=== PATIENT | female | born 1950 | race Hispanic/Latino ===

== ENCOUNTER 2017-07-07 16:27 | Emergency (ER) | payer OTHER ==
[2017-07-07 17:04] LABS: BASOPHILS % (AUTO) 0.6 % (0.0-5.0); EOSINOPHILS % (AUTO) 2.4 % (0.0-8.0); HEMATOCRIT 35.4 % (36-48); LYMPHOCYTES % (AUTO) 24.2 % (21.0-51.0); MEAN CORPUSCULAR HEMOGLOBIN 23.7 pg (27.0-33.0); MEAN CORPUSCULAR HGB CONC 31.8 g/dL (32.0-36.0); MEAN CORPUSCULAR VOLUME 74.5 fL (79-99); MONOCYTES % (AUTO) 8.2 % (3.0-13.0); NEUTROPHILS % (AUTO) 64.6 % (40.0-77.0); PLATELET COUNT (AUTO) 291 K/uL (130-400); RED BLOOD CELL COUNT(AUTO) 4.75 MIL/uL (4.00-5.50); WHITE BLOOD COUNT (AUTO) 8.6 K/uL (4.8-10.8)
[2017-07-07 17:19] LABS: CREATININE 0.8 mg/dL (0.5-1.5); POTASSIUM 3.2 mmol/L (3.5-5.1)
[2017-07-07 17:21] LABS: INR 0.97 (0.85-1.15); PARTIAL THROMBOPLASTIN TIME 26.2 SEC (26.3-35.5); PROTHROMBIN TIME 10.2 SEC (9.6-11.6)
[2017-07-07 17:23] LABS: ALBUMIN 3.3 g/dL (3.5-5.0); BILIRUBIN,TOTAL 0.3 mg/dL (0.2-1.0); TOTAL PROTEIN, SERUM 7.7 g/dL (6.0-8.3)
[2017-07-07] MEDS ORDERED: POTASSIUM BICARB/CIT AC 25 MEQ TABLET.EFF ONE (18:01)
[2017-07-07] MEDS ORDERED: ACETAMINOPHEN-CODEINE 300/30MG TAB ONE (18:02)
[2017-07-07] MEDS ORDERED: SODIUM CHLORIDE 0.9% 500ML 500 ML IV ONE (18:02)
[2017-07-20] MEDS ORDERED: TIOT4MIS3 IH (13:53)
[2017-07-20] MEDS ORDERED: BRIM5DRO4 OU (13:53)
[2017-07-20] MEDS ORDERED: SIMV40TA5 PO (13:53)
[2017-07-20] MEDS ORDERED: LOSA1TAB37 PO (13:53)
[2017-07-20] MEDS ORDERED: AEC81 PO (13:53)
[2017-07-20] MEDS ORDERED: METF10004 PO (13:53)
[2017-07-20] MEDS ORDERED: LATA2.5D2 OU (13:53)
[2017-07-20] MEDS ORDERED: TYL3 PO (13:53)
[2017-07-20] MEDS ORDERED: FERR325T22 PO (13:53)
== END 2017-07-07 22:46 | disposition home or self-care (01) ==
LOC: EDH 16:27
DX: R91.1 Solitary pulmonary nodule (principal); E87.6 Hypokalemia; R07.89 Other chest pain; E78.5 Hyperlipidemia, unspecified; I10 Essential (primary) hypertension; Z86.73 Personal history of transient ischemic attack (TIA), and cerebral infarction without residual deficits
CPT/HCPCS: 36415; 71045; 71275; 80053; 84484 ×2; 85025; 85378; 85610; 85730; 87804 ×2; 93005 ×2; 96360; 99285; J7040

== ENCOUNTER 2017-07-21 07:24 | Day surgery (SDC) | payer OTHER ==
[~2017-07-21] VITALS: Ht 152.4 cm; Wt 59.5 kg
[~2017-07-21 07:24] MED LIST: AEC81 PO; BRIM5DRO4 OU; FERR325T22 PO; LATA2.5D2 OU; LOSA1TAB37 PO; METF10004 PO; SIMV40TA5 PO; SODIUM CHLORIDE 0.9% 1000ML 1,000 ML IV ONE; TIOT4MIS3 IH; TYL3 PO
[2017-07-21 07:41] VITALS: BP 155/82
[2017-07-21] MEDS ORDERED: PROPOFOL 10 MG/ML 20ML VIAL IV ONE ×3 (09:41→10:08)
[2017-07-21] MEDS ORDERED: ESMOLOL HCL 10 MG/ML 10 ML VIAL ONE (09:42)
[2017-07-21] MEDS ORDERED: FENTANYL CITRATE PF 50 MCG/1 ML 2ML VIAL ONE (10:01)
[2017-07-21 10:18] VITALS: BP 101/51
== END 2017-07-21 11:00 ==
LOC: DAH 07:24
PROVIDERS: ATTEND Internal Medicine Gastroenterology
DX: K52.89 Other specified noninfective gastroenteritis and colitis (principal); D50.0 Iron deficiency anemia secondary to blood loss (chronic); K29.50 Unspecified chronic gastritis without bleeding; K57.30 Diverticulosis of large intestine without perforation or abscess without bleeding; K21.9 Gastro-esophageal reflux disease without esophagitis; I10 Essential (primary) hypertension; J44.9 Chronic obstructive pulmonary disease, unspecified; E11.9 Type 2 diabetes mellitus without complications; Z86.73 Personal history of transient ischemic attack (TIA), and cerebral infarction without residual deficits; G43.909 Migraine, unspecified, not intractable, without status migrainosus; F32.89 Other specified depressive episodes; H40.89 Other specified glaucoma; E78.4 Other hyperlipidemia; Z79.82 Long term (current) use of aspirin; Z79.84 Long term (current) use of oral hypoglycemic drugs; Z79.899 Other long term (current) drug therapy
CPT/HCPCS: 43239; 45380; 82948 ×2; 88305; 88312; 88313; 93005; A4606; J2704 ×3; J3010; J3490; J7030

== ENCOUNTER → 2017-08-10 | Outpatient (CLI) | payer OTHER ==
[~2017-08-10] MED LIST changes: -SODIUM CHLORIDE 0.9% 1000ML 1,000 ML IV ONE
== END | disposition home or self-care (01) ==
LOC: RAH 11:17
PROVIDERS: ATTEND Internal Medicine Gastroenterology
DX: R10.9 Unspecified abdominal pain (principal); R11.2 Nausea with vomiting, unspecified; R14.0 Abdominal distension (gaseous)
CPT/HCPCS: 78264; A9541

== ENCOUNTER → 2018-07-11 | Outpatient (CLI) | payer OTHER ==
[~2018-07-11] MED LIST changes: +IOHEXOL-350 50ML VIAL IV ONE; +METF-446 PO; -METF10004 PO
== END | disposition home or self-care (01) ==
LOC: RAH 08:37
PROVIDERS: ATTEND Family Medicine
DX: J44.9 Chronic obstructive pulmonary disease, unspecified (principal); K76.0 Fatty (change of) liver, not elsewhere classified; M47.815 Spondylosis without myelopathy or radiculopathy, thoracolumbar region; Z90.49 Acquired absence of other specified parts of digestive tract
CPT/HCPCS: 71270; Q9967

== ENCOUNTER → 2018-11-22 | Outpatient (CLI) | payer OTHER ==
[~2018-11-22] MED LIST changes: +GADODIAMIDE 10 MMOL/20 ML VIAL IV ONE; -IOHEXOL-350 50ML VIAL IV ONE
== END | disposition home or self-care (01) ==
LOC: RAH 07:57
PROVIDERS: ATTEND Family Medicine
DX: I65.21 Occlusion and stenosis of right carotid artery (principal); I70.0 Atherosclerosis of aorta; Z86.73 Personal history of transient ischemic attack (TIA), and cerebral infarction without residual deficits
CPT/HCPCS: 70549; A9579

== ENCOUNTER 2018-12-25 19:22 | Emergency (ER) | payer OTHER ==
[~2018-12-25 19:22] MED LIST changes: -GADODIAMIDE 10 MMOL/20 ML VIAL IV ONE
[2018-12-25] MEDS ORDERED: ACETAMINOPHEN EXTRA STRENGTH 500 MG TABLET ONE (19:40)
== END 2018-12-25 20:55 | disposition home or self-care (01) ==
LOC: EDH 19:22
DX: S40.011A Contusion of right shoulder, initial encounter (principal); S50.01XA Contusion of right elbow, initial encounter; I10 Essential (primary) hypertension; E11.9 Type 2 diabetes mellitus without complications; E78.5 Hyperlipidemia, unspecified; Z86.73 Personal history of transient ischemic attack (TIA), and cerebral infarction without residual deficits; Z98.890 Other specified postprocedural states; W01.198A Fall on same level from slipping, tripping and stumbling with subsequent striking against other object, initial encounter; Y93.01 Activity, walking, marching and hiking; Y92.009 Unspecified place in unspecified non-institutional (private) residence as the place of occurrence of the external cause; Y99.8 Other external cause status
CPT/HCPCS: 73030; 73070

== ENCOUNTER → 2019-01-31 | Outpatient (CLI) | payer OTHER ==
[2019-01-31 11:02] LABS: INR 0.97 (0.85-1.15); PARTIAL THROMBOPLASTIN TIME 23.4 SEC (26.3-35.5); PROTHROMBIN TIME 10.2 SEC (9.6-11.6)
--- NOTE | 2019-01-31 11:20 | NUR ---
U/S GUIDED BIOPSY RIGHT THYROID NODULE PROCEDURE PERFORMED BY DR. DUMONT. PUNCTURE SITE RIGHT SIDE NECK. PATIENT TOLERATED PROCEDURE WELL. SPECIMEN X 6 COLLECTED BY LAB, DR. SHAMAR SCHULTZ. END OF PROCEDURE AT 1135. BIOPSY NEEDLE REMOVED AND DRESSING APPLIED. NO BLEEDING NOTED. DISCHARGE INSTRUCTIONS GIVEN TO PATIENT AND VERBALIZED UNDERSTANDING. DISCHARGED AT 1145 AMBULATORY. PT STABLE, AAO X 3, WITH NO C/O PAIN.
== END | disposition home or self-care (01) ==
LOC: RAH 09:46
PROVIDERS: ATTEND Family Medicine
DX: E04.2 Nontoxic multinodular goiter (principal); Z79.01 Long term (current) use of anticoagulants
CPT/HCPCS: 10005; 36415; 60100; 76942; 85610; 85730; 88172; 88173; 88305

== ENCOUNTER → 2019-12-11 | Outpatient (CLI) | payer OTHER ==
[~2019-12-11] MED LIST changes: +SIMV-46 PO; -SIMV40TA5 PO
== END | disposition home or self-care (01) ==
LOC: SHCH 08:53
PROVIDERS: ATTEND Internal Medicine Cardiovascular Disease
DX: I25.10 Atherosclerotic heart disease of native coronary artery without angina pectoris (principal)
CPT/HCPCS: 93880

== ENCOUNTER → 2020-09-16 | Outpatient (CLI) | payer OTHER ==
[~2020-09-16] MED LIST changes: +LATA2.5D14 OU; -LATA2.5D2 OU
== END | disposition home or self-care (01) ==
LOC: RAH 08:16
PROVIDERS: ATTEND Internal Medicine Gastroenterology
DX: K31.84 Gastroparesis (principal); N28.1 Cyst of kidney, acquired; Z90.49 Acquired absence of other specified parts of digestive tract
CPT/HCPCS: 76700

== ENCOUNTER → 2022-03-28 | Outpatient (CLI) | payer OTHER ==
[~2022-03-28] MED LIST changes: +REGADENOSON 0.4 MG/5 ML PF SYG IVP SCH
== END | disposition home or self-care (01) ==
LOC: SHCH 07:42
PROVIDERS: ATTEND Internal Medicine Cardiovascular Disease
DX: I25.10 Atherosclerotic heart disease of native coronary artery without angina pectoris (principal); I45.10 Unspecified right bundle-branch block; Z79.899 Other long term (current) drug therapy
CPT/HCPCS: 78452; 96374; 93017; J2785; A9500 ×2

== ENCOUNTER → 2022-06-23 | Outpatient (CLI) | payer OTHER ==
[~2022-06-23] MED LIST changes: -REGADENOSON 0.4 MG/5 ML PF SYG IVP SCH
== END | disposition home or self-care (01) ==
LOC: SHCH 13:07
PROVIDERS: ATTEND Internal Medicine Cardiovascular Disease
DX: G45.1 Carotid artery syndrome (hemispheric) (principal); Z95.828 Presence of other vascular implants and grafts
CPT/HCPCS: 93880

== ENCOUNTER → 2022-07-12 | Outpatient (CLI) | payer OTHER ==
[~2022-07-12] MED LIST changes: -BRIM5DRO4 OU; +BRIM5DRO5 OU
== END | disposition home or self-care (01) ==
LOC: RAH 11:39
PROVIDERS: ATTEND Family Medicine
DX: R60.0 Localized edema (principal)
CPT/HCPCS: 93971

== ENCOUNTER → 2023-04-18 | Outpatient (CLI) | payer OTHER ==
[~2023-04-18] MED LIST changes: +ACET-2079 PO; +BUME1TAB7 PO; +BUSP7.5T7 PO; +CEFD300C3 PO; +DICY20TA2 PO; +DOXY100T2 PO; +FLUO40CA49 PO; +FOLI1 PO; +GABA-529 PO; +GLYB2.5T6 PO; +LEVO25TA9 PO; -LOSA1TAB37 PO; -METF-446 PO; +MONT-46 PO; +NITR0.4T50 SL; +Nitroglycerin 0.4MG Sl Tab SL; +PHEN-948 PO; +POTA-192 PO; +RIVA2.5T PO; +SACU1TAB7 PO
[2023-04-18 17:15] LABS: CREATININE 1.4 mg/dL (0.5-1.5); POTASSIUM 3.7 mmol/L (3.5-5.1)
== END | disposition home or self-care (01) ==
LOC: LAB 16:05
PROVIDERS: ATTEND Internal Medicine Cardiovascular Disease
DX: I10 Essential (primary) hypertension (principal)
CPT/HCPCS: 36415; 80048; 83880

== ENCOUNTER → 2023-05-29 | Outpatient (CLI) | payer OTHER ==
[2023-05-29 12:30] LABS: CREATININE 1.6 mg/dL (0.5-1.5); POTASSIUM 3.7 mmol/L (3.5-5.1)
== END | disposition home or self-care (01) ==
LOC: LAB 11:01
PROVIDERS: ATTEND Internal Medicine Cardiovascular Disease
DX: I10 Essential (primary) hypertension (principal)
CPT/HCPCS: 36415; 80048; 83880

== ENCOUNTER 2023-12-14 07:28 | Inpatient (IN) | payer OTHER ==
[2023-12-14] VITALS (12 sets, daily range): BP systolic 120–124; BP diastolic 52–62; PULSE 66–97; RESP 16–24; TEMP 97.7–98.9; O2SAT 94–100
[~2023-12-14] VITALS: Ht 149.9 cm; Wt 65.4 kg
[~2023-12-14 07:28] MED LIST changes: -AEC81 PO; +ALBU6.7H14 IH; -BRIM5DRO5 OU; -CEFD300C3 PO; -DICY20TA2 PO; -DOXY100T2 PO; -FERR325T22 PO; -GLYB2.5T6 PO; -LATA2.5D14 OU; +LEVO250T75 PO; +MELA5TAB66 PO; +METO5TAB7 PO; +ONDA-104 PO; +PRED20B PO; -RIVA2.5T PO; -SACU1TAB7 PO; -SIMV-46 PO; +SPIR25TA6 PO; -TIOT4MIS3 IH; -TYL3 PO
[2023-12-14 07:58] LABS: APPEARANCE,URINE CLEAR (CLEAR); BILIRUBIN,URINE NEGATIVE (NEGATIVE); COLOR,URINE DARK-YELLOW (YELLOW); GLUCOSE, URINE (UA) NEGATIVE (NEGATIVE); KETONES,URINE NEGATIVE (NEGATIVE); LEUKOCYTE ESTERASE ,URINE NEGATIVE Leu/uL (NEGATIVE); NITRATE,URINE NEGATIVE (NEGATIVE); OCCULT BLOOD,URINE NEGATIVE (NEGATIVE); PROTEIN,URINE NEGATIVE (NEGATIVE); UROBILINOGEN,URINE 0.2 mg/dL (0.2-1.0)
[2023-12-14 07:59] LABS: ADD UA MICROSCOPIC NO
[2023-12-14 08:11] LABS: HEMATOCRIT 28.8 % (36-48); MEAN CORPUSCULAR HEMOGLOBIN 22.9 pg (27.0-33.0); MEAN CORPUSCULAR HGB CONC 28.8 g/dL (32.0-36.0); MEAN CORPUSCULAR VOLUME 79.3 fL (79-99); PLATELET COUNT (AUTO) 271 K/uL (130-400); RED BLOOD CELL COUNT(AUTO) 3.63 MIL/uL (4.00-5.50); RED CELL DISTRIBUTION WIDTH 22.1 % (11.0-15.5); WHITE BLOOD COUNT (AUTO) 11.6 K/uL (4.8-10.8)
[2023-12-14 08:22] LABS: CREATININE 1.4 mg/dL (0.5-1.0); POTASSIUM 4.1 mmol/L (3.5-5.1)
[2023-12-14] MEDS: furoSEMIDE 40MG VIAL IV ONE (09:22)
[2023-12-14] MEDS: furoSEMIDE 40MG VIAL ONE (09:22)
[2023-12-14 09:33] LABS: LYMPHOCYTES % (MANUAL) 3 % (22-44); MONOCYTES % (MANUAL) 5 % (2-9); SEGMENTED NEUTROPHILS % 92 % (40-70); TOTAL CELLS COUNTED 100
[2023-12-14 09:34] LABS: MAN.DIFF COMMENT-IMPRESSION MANUAL DIFFERENTIAL; PLATELET MORPHOLOGY COMMENT ADEQUATE
[2023-12-14] MEDS: IpraTROPium 0.5 MG/2.5 ML INH IH SCH (11:25)
[2023-12-14] MEDS: SODIUM CHLORIDE 3% FOR INHALATION 4 ML/AMP VIAL.NEB IH ONE ×2 (11:34→19:07)
[2023-12-14] MEDS ORDERED: IpraTROPium 0.5 MG/2.5 ML INH IH PRN (15:00)
[2023-12-14] MEDS ORDERED: FURO40TA5 PO (15:32)
[2023-12-14] MEDS ORDERED: SACU1TAB PO (15:32)
[2023-12-14] MEDS: DOXYCYCLINE 100MG+NS 250ML 250 ML IV SCH (15:56)
[2023-12-14] MEDS: BUMETANIDE 1MG/4ML VIAL IVP SCH (15:56)
[2023-12-14] MEDS: HEParin 5,000 UNIT VIAL SQ SCH (16:02)
[2023-12-14] MEDS: ZOSYN 3.375GM +NS 50ML IV SCH (16:20)
[2023-12-14] MEDS: SODIUM CHLORIDE 7% INHALATION 4 ML VIAL.NEB IH ONE (18:10)
[2023-12-14 18:46] LABS: APPEARANCE,URINE CLEAR (CLEAR); BILIRUBIN,URINE NEGATIVE (NEGATIVE); COLOR,URINE YELLOW (YELLOW); GLUCOSE, URINE (UA) NEGATIVE (NEGATIVE); KETONES,URINE NEGATIVE (NEGATIVE); LEUKOCYTE ESTERASE ,URINE NEGATIVE Leu/uL (NEGATIVE); NITRATE,URINE NEGATIVE (NEGATIVE); OCCULT BLOOD,URINE MODERATE (NEGATIVE); PH,URINE 6.5 (5.0-8.0); PROTEIN,URINE NEGATIVE (NEGATIVE); UROBILINOGEN,URINE 0.2 mg/dL (0.2-1.0)
[2023-12-14 19:04] LABS: ADD UA MICROSCOPIC YES
[2023-12-14 19:13] LABS: RBC,URINE 26-50 /HPF (0-1); SQUAMOUS EPITHELIAL CELL,UR RARE /HPF (0-2)
[2023-12-14] MEDS: atorVAStatin 40 MG TABLET PO SCH (20:20)
[2023-12-14] MEDS: metoPROLOL tartRATE 25 MG TAB PO SCH (20:20)
[2023-12-14] MEDS: PANTOPRAZOLE 40 MG/VIAL IVP SCH (20:20)
[2023-12-14] MEDS: busPIRone HCL 5 MG TABLET PO SCH (20:20)
[2023-12-14 20:35] LABS: ABG BASE EXCESS 2.6 mmol/L (-2.0-3.0); ABG HCO3 27.9 mmol/L (21.0-28.0); ABG OXYGEN SATURATION 80.9 % (94.0-98.0); ABG PCO2 47 mmHg (32-45); CARBON MONOXIDE 0.7 % (0.5-1.5); CPAP, BG 5 cm H2O; DEVICE COMMENT LR RN JOSE; HHb 18.9; PO2, ARTERIAL BG 45.5 mmHg (83.0-108.0); VENT MODE, BG CPAP LR (ROOM AIR)
[2023-12-14] MEDS: MELATONIN 5 MG TABLET PO SCH (22:30)
[2023-12-14] MEDS: acetaMINOPHEN 325 MG TAB PO PRN (22:31)
[2023-12-15] VITALS (17 sets, daily range): BP systolic 97–138; BP diastolic 44–73; PULSE 59–77; RESP 18–21; TEMP 97.8–98.8; O2SAT 97–100
[2023-12-15 03:39] LABS: BASOPHILS # (AUTO) 0.04 K/uL (0.00-0.20); BASOPHILS % (AUTO) 0.3 % (0.0-5.0); EOSINOPHILS # (AUTO) 0.18 K/uL (0.00-0.70); EOSINOPHILS % (AUTO) 1.6 % (0.0-8.0); HEMATOCRIT 27.7 % (36-48); IMMATURE GRANULOCYTE ABSOLUTE 0.03 K/uL (0-1); LYMPHOCYTES # (AUTO) 0.9 K/uL (1.0-4.8); LYMPHOCYTES % (AUTO) 7.4 % (21.0-51.0); MEAN CORPUSCULAR HGB CONC 28.9 g/dL (32.0-36.0); MEAN CORPUSCULAR VOLUME 79.6 fL (79-99); MONOCYTES # (AUTO) 1.3 K/uL (0.1-1.0); MONOCYTES % (AUTO) 11.3 % (3.0-13.0); NEUTROPHILS # (AUTO) 9.1 K/uL (1.8-7.7); NEUTROPHILS % (AUTO) 79.1 % (40.0-77.0); PLATELET COUNT (AUTO) 252 K/uL (130-400); RED BLOOD CELL COUNT(AUTO) 3.48 MIL/uL (4.00-5.50); RED CELL DISTRIBUTION WIDTH 22.1 % (11.0-15.5); WHITE BLOOD COUNT (AUTO) 11.5 K/uL (4.8-10.8)
[2023-12-15 04:06] LABS: ALBUMIN 3.4 g/dL (3.5-5.0); BILIRUBIN,TOTAL 2.2 mg/dL (0.2-1.0); CREATININE 1.4 mg/dL (0.5-1.0); MAGNESIUM 1.9 mg/dL (1.80-2.40); PHOSPHORUS 4.6 mg/dL (2.5-4.9); POTASSIUM 4.3 mmol/L (3.5-5.1); THYROID STIMULATING HORMONE 6.95 uIU/mL (0.36-3.74); TOTAL PROTEIN, SERUM 6.7 g/dL (6.0-8.3)
[2023-12-15 04:07] LABS: B-TYPE NATRIURETIC PEPTIDE 2460 pg/mL (0-100)
[2023-12-15] MEDS: levoTHYROxine 25 MCG TABLET PO SCH (05:37)
[2023-12-15] MEDS: SODIUM CHLORIDE 3% FOR INHALATION 4 ML/AMP VIAL.NEB IH ONE (06:36)
[2023-12-15 07:21] LABS: ABG BASE EXCESS 2.1 mmol/L (-2.0-3.0); ABG OXYGEN SATURATION 99.6 % (94.0-98.0); ABG PCO2 44 mmHg (32-45); CARBON MONOXIDE 0.9 % (0.5-1.5); DEVICE COMMENT RR, MARY,RN; HHb 0.4; PO2, ARTERIAL BG 209.4 mmHg (83.0-108.0)
[2023-12-15] MEDS: metoLAZONE 2.5 MG TABLET PO SCH (08:38)
[2023-12-15] MEDS: monteLUKAST sodIUM 10 MG TAB PO SCH (08:39)
[2023-12-15] MEDS: ASPIRIN 81 MG EC TAB PO SCH (08:39)
[2023-12-15] MEDS: SPIRONOLACTONE 25 MG TAB PO SCH (08:39)
[2023-12-16] VITALS (14 sets, daily range): BP systolic 109–136; BP diastolic 50–68; PULSE 62–70; RESP 18–23; TEMP 96.1–98.4; O2SAT 91–100
[2023-12-16] MEDS: TEMAZEPAM 15 MG CAPSULE PO PRN (00:23)
[2023-12-16 03:48] LABS: HEMATOCRIT 29.9 % (36-48); MEAN CORPUSCULAR HEMOGLOBIN 22.9 pg (27.0-33.0); MEAN CORPUSCULAR HGB CONC 27.8 g/dL (32.0-36.0); MEAN CORPUSCULAR VOLUME 82.6 fL (79-99); RED BLOOD CELL COUNT(AUTO) 3.62 MIL/uL (4.00-5.50); RED CELL DISTRIBUTION WIDTH 21.7 % (11.0-15.5); WHITE BLOOD COUNT (AUTO) 8.1 K/uL (4.8-10.8)
[2023-12-16 03:58] LABS: CREATININE 1.7 mg/dL (0.5-1.0); MAGNESIUM 1.8 mg/dL (1.80-2.40); PHOSPHORUS 4.7 mg/dL (2.5-4.9)
[2023-12-16] MEDS: acetaMINOPHEN WITH coDEINE 1 TAB TAB PO PRN (19:19)
[2023-12-17] VITALS (13 sets, daily range): BP systolic 110–132; BP diastolic 48–83; PULSE 57–94; RESP 16–18; TEMP 97.8–98.4; O2SAT 100
[2023-12-17 04:25] LABS: BASOPHILS # (AUTO) 0.01 K/uL (0.00-0.20); BASOPHILS % (AUTO) 0.1 % (0.0-5.0); EOSINOPHILS # (AUTO) 0.24 K/uL (0.00-0.70); EOSINOPHILS % (AUTO) 2.8 % (0.0-8.0); HEMATOCRIT 28.5 % (36-48); IMMATURE GRANULOCYTE ABSOLUTE 0.02 K/uL (0-1); LYMPHOCYTES # (AUTO) 0.8 K/uL (1.0-4.8); LYMPHOCYTES % (AUTO) 9.1 % (21.0-51.0); MEAN CORPUSCULAR HEMOGLOBIN 23.1 pg (27.0-33.0); MEAN CORPUSCULAR HGB CONC 28.4 g/dL (32.0-36.0); MEAN CORPUSCULAR VOLUME 81.2 fL (79-99); MONOCYTES # (AUTO) 0.9 K/uL (0.1-1.0); NEUTROPHILS # (AUTO) 6.7 K/uL (1.8-7.7); NEUTROPHILS % (AUTO) 77.8 % (40.0-77.0); PLATELET COUNT (AUTO) 204 K/uL (130-400); RED BLOOD CELL COUNT(AUTO) 3.51 MIL/uL (4.00-5.50); RED CELL DISTRIBUTION WIDTH 21.9 % (11.0-15.5); WHITE BLOOD COUNT (AUTO) 8.6 K/uL (4.8-10.8)
[2023-12-17 04:36] LABS: CREATININE 1.6 mg/dL (0.5-1.0); MAGNESIUM 1.5 mg/dL (1.80-2.40); POTASSIUM 3.5 mmol/L (3.5-5.1)
[2023-12-17] MEDS ORDERED: POTASSIUM CHLORIDE 10% ELIXIR 20 MEQ/15 ML UDCUP PO PRN (06:00)
[2023-12-17] MEDS ORDERED: POTASSIUM CHLORIDE 10MEQ/100ML 100 ML IV PRN ×2 (06:00)
[2023-12-17] MEDS: MAGNESIUM 2GM PREMIX 50ML 50 ML IV PRN (06:05)
[2023-12-17] MEDS: KCL 20 MEQ ERTAB PO PRN (06:06)
[2023-12-17] MEDS ORDERED: furoSEMIDE 40 MG TABLET PO SCH (09:00)
[2023-12-18] VITALS (9 sets, daily range): BP systolic 108–120; BP diastolic 39–67; PULSE 60–84; RESP 16–20; TEMP 97.8–98; O2SAT 32–100
[2023-12-18 03:56] LABS: BASOPHILS # (AUTO) 0.03 K/uL (0.00-0.20); BASOPHILS % (AUTO) 0.4 % (0.0-5.0); EOSINOPHILS # (AUTO) 0.26 K/uL (0.00-0.70); HEMATOCRIT 28.6 % (36-48); IMMATURE GRANULOCYTE ABSOLUTE 0.04 K/uL (0-1); LYMPHOCYTES # (AUTO) 0.8 K/uL (1.0-4.8); LYMPHOCYTES % (AUTO) 9.1 % (21.0-51.0); MEAN CORPUSCULAR HEMOGLOBIN 22.9 pg (27.0-33.0); MEAN CORPUSCULAR HGB CONC 28.7 g/dL (32.0-36.0); MEAN CORPUSCULAR VOLUME 79.9 fL (79-99); MONOCYTES # (AUTO) 0.9 K/uL (0.1-1.0); NEUTROPHILS # (AUTO) 6.6 K/uL (1.8-7.7); PLATELET COUNT (AUTO) 209 K/uL (130-400); RED BLOOD CELL COUNT(AUTO) 3.58 MIL/uL (4.00-5.50); RED CELL DISTRIBUTION WIDTH 21.8 % (11.0-15.5); WHITE BLOOD COUNT (AUTO) 8.5 K/uL (4.8-10.8)
[2023-12-18 04:09] LABS: CREATININE 1.6 mg/dL (0.5-1.0); MAGNESIUM 1.8 mg/dL (1.80-2.40); POTASSIUM 4.1 mmol/L (3.5-5.1)
[2023-12-18] MEDS: POTASSIUM CHLORIDE 10MEQ SR TAB PO PRN (09:41)
[2023-12-18] MEDS ORDERED: LEVO-70 PO (13:25)
== END 2023-12-18 14:10 | disposition home or self-care (01) | DRG 871 ==
LOC: EDH 07:28 → EDHIP 10:23 → 2DH 12:04
PROVIDERS: ADMIT Internal Medicine; ATTEND Internal Medicine
PROC: 5A09357 Assistance with Respiratory Ventilation, Less than 24 Consecutive Hours, Continuous Positive Airway Pressure (ICD-10-PCS; principal; 2023-12-15)
PROC: 5A09357 Assistance with Respiratory Ventilation, Less than 24 Consecutive Hours, Continuous Positive Airway Pressure (ICD-10-PCS; 2023-12-16)
DX: A41.9 Sepsis, unspecified organism (principal); G93.41 Metabolic encephalopathy; J96.21 Acute and chronic respiratory failure with hypoxia; J15.9 Unspecified bacterial pneumonia; J96.22 Acute and chronic respiratory failure with hypercapnia; I50.33 Acute on chronic diastolic (congestive) heart failure; I13.0 Hypertensive heart and chronic kidney disease with heart failure and stage 1 through stage 4 chronic kidney disease, or unspecified chronic kidney disease; N18.4 Chronic kidney disease, stage 4 (severe); N17.9 Acute kidney failure, unspecified; K56.609 Unspecified intestinal obstruction, unspecified as to partial versus complete obstruction; I48.91 Unspecified atrial fibrillation; L89.891 Pressure ulcer of other site, stage 1; Z99.81 Dependence on supplemental oxygen; E11.65 Type 2 diabetes mellitus with hyperglycemia; E11.22 Type 2 diabetes mellitus with diabetic chronic kidney disease; E11.51 Type 2 diabetes mellitus with diabetic peripheral angiopathy without gangrene; I27.20 Pulmonary hypertension, unspecified; I34.0 Nonrheumatic mitral (valve) insufficiency; I25.10 Atherosclerotic heart disease of native coronary artery without angina pectoris; E03.9 Hypothyroidism, unspecified; Z86.73 Personal history of transient ischemic attack (TIA), and cerebral infarction without residual deficits; Z87.891 Personal history of nicotine dependence; Z79.899 Other long term (current) drug therapy
CPT/HCPCS: 36415; 36600; 71045; 71250; 74176; 80048; 80053; 81001; 81003; 82140; 82435; 82550; 82803; 82947; 82948; 83605; 83735; 83880; 84100; 84132; 84145; 84295; 84443; 84484; 85018; 85025; 85027; 87040; 87086; 93005; 93306; 94640; 94660; 94664; G0378; J1644; J1940; J2470; J2543; J3475; J3490